=== PATIENT | female | born 1990 | race Asian ===

== ENCOUNTER 2017-07-04 03:20 | Inpatient (IN) | payer BC ==
[2017-07-04] MEDS ORDERED: LACTATED RINGER'S 1,000 ML IV ×2 (04:04)
[2017-07-04] MEDS ORDERED: METHYLERGONOVINE 0.2 MG INJ IM ×2 (04:30)
[2017-07-04] MEDS ORDERED: CARBOPROST 250 MCG INJ IM ×2 (04:30)
[2017-07-04] MEDS ORDERED: MISOPROSTOL 200 MCG TAB PR ×2 (04:30)
[2017-07-04] MEDS ORDERED: IBUPROFEN 600 MG TAB PO ×2 (04:30)
[2017-07-04] MEDS ORDERED: BUTORPHANOL 2 MG INJ IV ×2 (04:30)
[2017-07-04] MEDS ORDERED: LIDOCAINE 1% (MPF) 30 ML INJ INJ ×2 (04:30)
[2017-07-04] MEDS ORDERED: AMPICILLIN 2 GM/NS (PMX) 100 ML IV (04:30)
[2017-07-04] MEDS ORDERED: OXYTOCIN 30 UNITS/LR 500 ML IV ×4 (04:30)
[2017-07-04 04:50] LABS: ADD MAN DIFF? NO
[2017-07-04 04:52] LABS: WHITE BLOOD COUNT 9.9 10^3/ul (4.8-10.8)
[2017-07-04 04:52] LABS: BASOPHILS % 0.4 % (0.0-2.0); EOSINOPHILS # 0.1 10^3/ul (0.0-0.5); EOSINOPHILS % 0.9 % (0.0-7.0); HEMATOCRIT 40.1 % (37.0-47.0); HEMOGLOBIN 13.6 g/dl (12.0-16.0); LYMPHOCYTES # 2.2 10^3/ul (0.8-2.9); LYMPHOCYTES % 22.2 % (15.0-51.0); MEAN CORPUSCULAR HGB CONC 33.9 g/dl (32.0-37.0); MEAN CORPUSCULAR VOLUME 97.3 fl (82.0-101.0); MEAN PLATELET VOLUME 11.1 fl (7.4-10.4); MONOCYTE # 1.1 10^3/ul (0.3-0.9); MONOCYTES % 10.7 % (0.0-11.0); NEUTROPHIL # 6.4 10^3/ul (1.6-7.5); NEUTROPHILS % 64.9 % (39.0-77.0); PLATELET COUNT 195 10^3/UL (140-415); RED BLOOD COUNT 4.12 10^6/ul (4.20-5.40); RED CELL DISTRIBUTION WIDTH 13.5 % (11.5-14.5)
[2017-07-04] MEDS ORDERED: FENTAnyl 2MCG/ML-ROPIV 0.2% 100 ML (05:07)
[2017-07-04 05:12] LABS: PARTIAL THROMBOPLASTIN TIME 29.5 Sec (25.0-35.0); PROTIME 12.2 Sec (11.9-14.9)
[2017-07-04] MEDS: LACTATED RINGER'S 1,000 ML IV ×4 (05:14→18:04)
[2017-07-04] MEDS: AMPICILLIN 2 GM/NS (PMX) 100 ML IV (05:18)
[2017-07-04] MEDS ORDERED: HYDROmorphONE 0.5 MG/0.5 ML SYG IV ×2 (05:30)
[2017-07-04] MEDS ORDERED: ONDANSETRON 4 MG INJ IV (05:30)
[2017-07-04] MEDS ORDERED: KETOROLAC 30 MG INJ IV (05:30)
[2017-07-04] MEDS ORDERED: DIPHENHYDRAMINE 50 MG INJ IV (05:30)
[2017-07-04] MEDS ORDERED: NALOXONE (0.4 MG/ML) INJ IV (05:30)
[2017-07-04 05:48] LABS: HEPATITIS B SURFACE ANTIGEN NEGATIVE (NEGATIVE)
[2017-07-04] MEDS ORDERED: AMPICILLIN 1 GM/NS (PMX) 50 ML IV (08:30)
[2017-07-04] MEDS: AMPICILLIN 1 GM/NS (PMX) 50 ML IV ×4 (08:33→21:13)
[2017-07-04] MEDS: OXYTOCIN 30 UNITS/LR 500 ML IV (08:45)
[2017-07-04 10:18] LABS: AMPHETAMINE/METHAMPHETAMINE Negative (NEGATIVE); BARBITURATES Negative (NEGATIVE); BENZODIAZEPINES Negative (NEGATIVE); CANNABINOIDS Negative (NEGATIVE); COCAINE Negative (NEGATIVE); OPIATES Negative (NEGATIVE)
[2017-07-04] MEDS: FENTAnyl 2MCG/ML-ROPIV 0.2% 100 ML BAG EPI ×2 (14:37→22:13)
[2017-07-04] MEDS: DEXTROSE 5%-LR 1,000 ML IV (16:15)
[2017-07-04 18:37] LABS: RAPID PLASMA REAGIN NONREACTIVE (NR)
[2017-07-05] MEDS: DEXTROSE 5%-LR 1,000 ML IV (00:30)
[2017-07-05] MEDS: AMPICILLIN 1 GM/NS (PMX) 50 ML IV (00:30)
[2017-07-05] MEDS: OXYTOCIN 30 UNITS/LR 500 ML IV ×2 (00:40→01:00)
[2017-07-05] MEDS ORDERED: METHYLERGONOVINE 0.2 MG INJ IM (03:30)
[2017-07-05] MEDS ORDERED: OXYCODONE/ASPIRIN (4.88/325) TAB PO (03:30)
[2017-07-05] MEDS ORDERED: CARBOPROST 250 MCG INJ IM (03:30)
[2017-07-05] MEDS ORDERED: MISOPROSTOL 200 MCG TAB PR (03:30)
[2017-07-05] MEDS ORDERED: OXYTOCIN 30 UNITS/LR 500 ML IV (03:30)
[2017-07-05] MEDS ORDERED: ZOLPIDEM 5 MG TAB PO (03:30)
[2017-07-05] MEDS: OXYCODONE/ASPIRIN (4.88/325) TAB PO ×2 (03:49→19:46)
[2017-07-05] MEDS: BENZOCAINE 20% 56 ML SPRAY TOP (03:50)
[2017-07-05] MEDS: LANOLIN 7 GM TUBE TOP (03:50)
[2017-07-05] MEDS: IBUPROFEN 600 MG TAB PO ×4 (05:51→23:52)
[2017-07-05] MEDS: SENNA/DOCUSATE NA (8.6MG/50MG) TAB PO ×2 (09:31→21:57)
[2017-07-06] MEDS: BENZOCAINE 20% 56 ML SPRAY TOP (03:52)
[2017-07-06] MEDS: WITCH HAZEL/GLYCERIN PAD PR (03:52)
[2017-07-06] MEDS: IBUPROFEN 600 MG TAB PO ×3 (05:43→18:08)
[2017-07-06 08:32] LABS: ADD MAN DIFF? NO
[2017-07-06 08:40] LABS: WHITE BLOOD COUNT 14.3 10^3/ul (4.8-10.8)
[2017-07-06 08:40] LABS: BASOPHIL # 0.1 10^3/ul (0.0-0.1); BASOPHILS % 0.3 % (0.0-2.0); EOSINOPHILS # 0.2 10^3/ul (0.0-0.5); EOSINOPHILS % 1.1 % (0.0-7.0); HEMATOCRIT 36.5 % (37.0-47.0); HEMOGLOBIN 12.2 g/dl (12.0-16.0); LYMPHOCYTES # 2.2 10^3/ul (0.8-2.9); LYMPHOCYTES % 15.3 % (15.0-51.0); MEAN CORPUSCULAR HEMOGLOBIN 33.1 pg (29.0-33.0); MEAN CORPUSCULAR HGB CONC 33.4 g/dl (32.0-37.0); MEAN CORPUSCULAR VOLUME 98.9 fl (82.0-101.0); MEAN PLATELET VOLUME 10.9 fl (7.4-10.4); MONOCYTE # 1.1 10^3/ul (0.3-0.9); MONOCYTES % 7.4 % (0.0-11.0); NEUTROPHIL # 10.7 10^3/ul (1.6-7.5); NEUTROPHILS % 75.1 % (39.0-77.0); PLATELET COUNT 173 10^3/UL (140-415); RED BLOOD COUNT 3.69 10^6/ul (4.20-5.40); RED CELL DISTRIBUTION WIDTH 13.6 % (11.5-14.5)
[2017-07-06] MEDS: SENNA/DOCUSATE NA (8.6MG/50MG) TAB PO ×2 (08:46→21:38)
[2017-07-06] MEDS: OXYCODONE/ASPIRIN (4.88/325) TAB PO (08:46)
[2017-07-06] MEDS ORDERED: VITAMIN A & D 5 GM OINT PACKET TOP (21:13)
[2017-07-07] MEDS: IBUPROFEN 600 MG TAB PO ×5 (01:10→18:10)
[2017-07-07 08:32] LABS: ADD MAN DIFF? NO
[2017-07-07 08:40] LABS: BASOPHIL # 0.1 10^3/ul (0.0-0.1); BASOPHILS % 0.5 % (0.0-2.0); EOSINOPHILS # 0.2 10^3/ul (0.0-0.5); HEMATOCRIT 34.3 % (37.0-47.0); HEMOGLOBIN 11.5 g/dl (12.0-16.0); LYMPHOCYTES # 2.2 10^3/ul (0.8-2.9); MEAN CORPUSCULAR HGB CONC 33.5 g/dl (32.0-37.0); MEAN CORPUSCULAR VOLUME 98.6 fl (82.0-101.0); MEAN PLATELET VOLUME 10.5 fl (7.4-10.4); MONOCYTE # 0.7 10^3/ul (0.3-0.9); MONOCYTES % 7.8 % (0.0-11.0); NEUTROPHIL # 6.2 10^3/ul (1.6-7.5); NEUTROPHILS % 66.2 % (39.0-77.0); PLATELET COUNT 175 10^3/UL (140-415); RED BLOOD COUNT 3.48 10^6/ul (4.20-5.40); RED CELL DISTRIBUTION WIDTH 13.3 % (11.5-14.5)
[2017-07-07 08:40] LABS: WHITE BLOOD COUNT 9.3 10^3/ul (4.8-10.8)
[2017-07-07] MEDS: DIPHTH/TET/ACEL PERTUSS (ADULT) 0.5 ML VIAL IM* (09:03)
[2017-07-07] MEDS: SENNA/DOCUSATE NA (8.6MG/50MG) TAB PO (09:06)
[2017-07-07] MEDS: OXYCODONE/ASPIRIN (4.88/325) TAB PO (09:26)
== END 2017-07-07 18:57 | disposition home or self-care (01) | DRG 775 ==
LOC: OBT 03:20 → PP1 07-05 02:52 → L-D 03:20 → OBT 03:50 → L-D 03:50
PROVIDERS: Obstetrics & Gynecology
PROC: 10E0XZZ Delivery of Products of Conception, External Approach (ICD-10-PCS; principal; 2017-07-05)
PROC: 0W8NXZZ Division of Female Perineum, External Approach (ICD-10-PCS; 2017-07-05)
DX: O69.3XX0 Labor and delivery complicated by short cord, not applicable or unspecified (principal); O76 Abnormality in fetal heart rate and rhythm complicating labor and delivery; Z37.0 Single live birth; Z3A.38 38 weeks gestation of pregnancy
CPT/HCPCS: 62319; 80307; 85025; 85610; 85730; 86592; 86850; 86900; 86901; 87340; 99464